=== PATIENT | male | born 1960 | race Asian ===

== ENCOUNTER → 2016-11-08 | Outpatient (CLI) | payer OTHER ==
--- NOTE | 2016-11-08 08:30 | US ---
Right Upper Quadrant Sonogram (Limited Abdominal) Clinical Indications: Right upper quadrant pain. Findings: The visualized pancreas is unremarkable. The tail was obscured by bowel gas. The aorta tap ers normally from 22 to 16 mm. The liver is unremarkable measuring 14.9 cm in length. Contour is smooth. Main portal vein is patent. The gallbladder is fluid-filled. Gallbladder wall is normal at 2.4 mm. The common bile duct is aylin l at 3.6 mm. There is no sonographic Giron sign. The right kidney measures 5.9 x 6.3 x 10.7 cm with a 1.6 cm cortex. Impression: No sonographic evidence to explain the patient's upper abdominal pain. Specifically, no evidence of cholelithiasis or choledocholithiasis.
== END ==
LOC: CIMAGING 07:48
PROVIDERS: ATTEND Physician Assistant
DX: R10.11 Right upper quadrant pain (principal)
CPT/HCPCS: 76705-PO

== ENCOUNTER → 2018-11-15 | Outpatient (CLI) | payer OTHER | LOC: FIMAGING 06:44 | PROVIDERS: ATTEND Internal Medicine | DX: R10.11 Right upper quadrant pain (principal) ==